=== PATIENT | female | born 1970 | race Caucasian/White ===

== ENCOUNTER 2021-07-24 09:17 | Inpatient (IN) | payer MEDICARE, OTHER, SELFPAY ==
--- NOTE | ~2021-07-24 | US_ITS ---
EXAMINATION: US ABDOMEN LIMITED CLINICAL INFORMATION: Right upper quadrant and epigastric pain with nausea.. COMPARISON: CT abdomen and pelvis with contrast 11/18/2011. TECHNIQUE: Real-time imaging of the right upper quadrant abdominal viscera. FINDINGS: PANCREAS: The visualized pancreas is normal in size and contour and echogenicity. There is no pancreatic ductal distention or retroperitoneal effusion. Portion pancreatic tail obscured by bowel gas and not completely imaged. LIVER: The liver is normal in size and contour and within normal echogenicity. There is no focal hepatic parenchymal lesion or intrahepatic biliary ductal dilatation. GALLBLADDER: There is positive sonographic Madsen's sign with tenderness with transducer compression. The gallbladder is distended to 3.5 cm in diameter. There are numerous dependent calculi in the gallbladder. Gallbladder wall is within limits of normal thickness. No visible subserosal edema . COMMON BILE DUCT: Normal in caliber measuring 0.4 cm in diameter. RIGHT KIDNEY: Normal. No hydronephrosis. No renal calculi or focal parenchymal lesions. The kidney measures 10.9 cm in maximum dimension. FREE FLUID: None. US/US abdomen limited IMPRESSION: 1. Numerous gallstones. Positive sonographic Madsen's sign. Gallbladder wall within limits of normal at this time. 2. No intrahepatic or extrahepatic ductal dilatation.
[2021-07-24 09:44] VITALS: BP 149/74; PULSE 80; RESP 18; TEMP 36.9; O2SAT 99; BMI 32.5
--- NOTE | 2021-07-24 10:24 | ECG_ITS ---
Test Reason : ABDOMINAL PAIN Blood Pressure : / mmHG Vent. Rate : 076 BPM Atrial Rate : 076 BPM P-R Int : 166 ms QRS Dur : 094 ms QT Int : 432 ms P-R-T Axes : 046 058 044 degrees QTc Int : 486 ms Normal sinus rhythm Prolonged QT Abnormal ECG No previous ECGs available Referred By: Rosanna King Electronically Signed By:
--- NOTE | 2021-07-24 10:55 | PC.NURSE ---
pt off to ultrasound via stretcher.
[2021-07-24 11:03] LABS: Appearance Urine CLEAR; Color Urine YELLOW; Glucose Urine UA NEG (NEG); Leukocyte Esterase Urine NEG (NEG); Nitrite Urine NEG (NEG); PH 6.5 (5.0-8.0); UACC Culture Trigger NO; Urine Blood TRACE (NEG); Urine Ketones NEG (NEG); Urine Protein NEG (NEG-TRACE)
[2021-07-24 11:09] LABS: WBC Urine 0-2 /HPF (0-4)
[2021-07-24 11:10] LABS: Mucus Urine 3+ /LPF; Squamous Epithelial Cell Urine 2+ /LPF
[2021-07-24 12:03] LABS: MANUAL DIFF FLAG NO
[2021-07-24 12:05] LABS: Basophils Absolute Auto 0.1 X10*3/uL (0.0-0.2); Basophils Percent Auto 0.4 % (0-2); Eosinophils Percent Auto 0.2 % (0-4); Hematocrit 39.2 % (37.0-47.0); Hemoglobin 12.6 g/dl (12.0-16.0); Imm Gran Abs Auto 0.07 X10*3/uL (0.00-0.03); Imm Gran Pct Auto 0.6 % (0.0-0.4); Lymphocytes Absolute Auto 1.3 X10*3/uL (1.2-4.9); Lymphocytes Percent Auto 11.3 % (20-40); Mean Corpuscular HGB Conc 32.1 g/dl (31.0-35.0); Mean Platelet Volume 9.4 fL (9.4-12.3); Monocytes Absolute Auto 0.4 X10*3/uL (0.1-1.2); Monocytes Percent Auto 3.2 % (2-11); Neutrophils Absolute Auto 9.44 x10*3/uL (2.0-8.3); Neutrophils Percent Auto 84.3 % (45-73); Platelet Count 408 X10*3/uL (160-400); Red Blood Count 4.84 X10*6/uL (4.20-5.50); Red Cell Distribution Width 13.2 % (11.0-16.0); White Blood Count 11.2 X10*3/uL (4.8-10.8)
[2021-07-24] MEDS: Ketorolac Tromethamine 15 MG/ML VIAL IVPUSH (12:07)
[2021-07-24] MEDS: ondansetron HCL 4 MG/2 ML VIAL IVPUSH ×2 (12:07→22:33)
[2021-07-24] MEDS: Magnesium Hydrox/Alum Hydrox 30 ML ORAL.SUSP PO (12:11)
[2021-07-24] MEDS: Lidocaine HCl Viscous 2 % 15 ML SOLUTION MUCOUS MEM (12:11)
[2021-07-24] MEDS: Famotidine/PF 20 MG/2 ML VIAL IVPUSH (12:11)
[2021-07-24] MEDS: 0.9 % Sodium Chloride 1,000 ML 999 ML IVCONT (12:11)
--- NOTE | 2021-07-24 12:28 | ED_ITS ---
HPI - Abdominal Pain General Chief Complaint: Abdominal Pain Stated Complaint: upper abd pain Time Seen by Provider: 07/24/21 10:19 Source: patient Mode of arrival: ambulatory History of Present Illness HPI narrative: 50-year-old female with a past medical history of IBS, migraines, presenting to the ED complaining of right upper quadrant abdominal pain, & nausea since 5:00 a.m. Admits pain woke her up from sleep. Denies fever, chills, diarrhea/constipation, dysuria/hematuria, CP/SOB MD elicited complaint: abdominal pain Related Data Home Medications Medication Instructions Recorded Confirmed atorvastatin 10 mg tablet 10 mg PO BEDTIME 07/24/21 07/24/21 black cohosh 200 mg capsule 200 mg PO DAILY 07/24/21 07/24/21 cetirizine 10 mg tablet (Zyrtec) 10 mg PO DAILY 07/24/21 07/24/21 cyclobenzaprine 5 mg tablet 1 tab PO BEDTIME PRN 07/24/21 07/24/21 eluxadoline 75 mg tablet (Viberzi) 1 tab PO BEDTIME 07/24/21 07/24/21 escitalopram oxalate 20 mg tablet 1 tab PO DAILY 07/24/21 07/24/21 fremanezumab-vfrm 225 mg/1.5 mL 140 mg SUBCUT Q28D 07/24/21 07/24/21 subcutaneous auto-injector (Ajovy) midodrine 2.5 mg tablet 1 tab PO BID 07/24/21 07/24/21 omeprazole 20 mg capsule,delayed 20 mg PO DAILY 07/24/21 07/24/21 release oxybutynin chloride 10 mg 1 tab PO DAILY 07/24/21 07/24/21 tablet,extended release 24 hr rimegepant 75 mg disintegrating 1 tab PO DAILY PRN 07/24/21 07/24/21 tablet (Nurtec ODT) sumatriptan succinate 100 mg tablet 100 mg PO DAILY PRN 07/24/21 07/24/21 Allergies Allergy/AdvReac Type Severity Reaction Status Date / Time Sulfa (Sulfonamide Allergy Unknown RASH Unverified 06/07/20 18:09 Antibiotics) [SULFA (SULFONAMIDE ANTIBIOTICS)] codeine [CODEINE] AdvReac Unknown NAUSEA & Unverified 06/07/20 18:09 VOMITING Review of Systems Review of Systems Constitutional:No Fever, No Chills, No Fatigue, No Malaise ENT/Mouth: No Nasal Congestion, No Sinus Pain, No Hoarseness, No sore throat, No Rhinorrhea, No Swallowing Difficulty Eyes: No Eye Pain, No Swelling, No Redness Cardiovascular: No Chest Pain, No SOB, No Edema, No Palpitations Respiratory: No Cough, No Dyspnea Gastrointestinal: + Nausea, No Vomiting, No Diarrhea, No Constipation, + Abdominal pain Genitourinary: No irregular bleeding, No Dysuria, No Urinary Frequency, No Hematuria,No Urgency, No Flank Pain Musculoskeletal: No joint pain, No Myalgias, No Joint Swelling Skin: No Skin Lesions, No rash Neuro: No Weakness, No Dizziness, No Headache Yes all other systems are reviewed and are negative Physical Exam Vital Signs: Vital Signs: Last Vital Signs Temp 98.3 F 07/24/21 14:28 Pulse 86 07/24/21 14:28 Resp 18 07/24/21 14:28 BP 120/57 L 07/24/21 14:28 Pulse Ox 100 07/24/21 14:28 Body Mass Index 32.5 Const: General: cooperative, healthy appearing and no acute distress Orientation/consciousness: patient oriented x3 Limitations: no limitations HENMT: Head: Yes normal to inspection Ears: hearing grossly normal bilaterally General nose exam: Normal external nose present Face and sinus: Yes normal facial exam Eyes: General: appearance normal, both eyes and all related structures EOM: EOMs intact bilaterally Neck: Neck: Yes normal visual inspection and Yes no meningeal signs Resp: Effort & Inspection: normal respiratory effort Auscultation: clear to auscultation bilaterally, no rales and no wheezes Cardio: Rate: regular rate Heart sounds: S1 normal heart sound present and S2 normal heart sound present GI: Inspection: Yes normal to inspection Palpation (GI): Soft to palpation, Tenderness to palpation present (GI) in the epigastrum and in the RUQ, no guarding and not rigid : General: Yes no CVA tenderness Back/Spine/Pelvis: Back: no CVA tenderness Skin: Rashes: no rashes Wounds: no wounds Neuro: General: patient oriented x3 and no meningeal signs Gait exam (Neuro): Normal gait present Extrem: General: Yes normal to inspection Course Course Course Narrative: 1230--US abdomen limited IMPRESSION: 1. Numerous gallstones. Positive sonographic Madsen's sign. Gallbladder wall within limits of normal at this time. 2. No intrahepatic or extrahepatic ductal dilatation. -mild leukocytosis of 11.2, labs otherwise unremarkable. Will consult surgery -1230--Dr. Negron consulted, is currently going into surgery will admit when finished MDM - Abdominal Pain MDM Narrative Medical decision making narrative: 50-year-old female with a past medical history of IBS, migraines, presenting to the ED complaining of right upper quadrant abdominal pain, & nausea since 5:00 a.m. on exam vital signs stable, appears in pain, abdomen soft with RUQ/epigastric TTP, no rebound or guarding, no CVAT. Concern for cholecystitis/cholelithiasis vs pancreatitis. Lower concern for renal stone/pyelo or UTI. Unlikely diverticulitis/appendicitis Plan: Labs, UA, abdomen ultrasound, IVF, symptomatic treatment, re-evaluation Medical Records Attestation: I reviewed the patient's medical records. Lab Data Attestation: I reviewed the patient's lab results. Result diagrams: 07/24/21 11:58 07/24/21 11:57 Labs: Lab Results 07/24/21 07/24/21 07/24/21 Range/Units 10:54 11:57 11:58 WBC 11.2 H (4.8-10.8) X10*3/uL RBC 4.84 (4.20-5.50) X10*6/uL Hgb 12.6 (12.0-16.0) g/dl Hct 39.2 (37.0-47.0) % MCV 81.0 (80.0-98.0) fL MCH 26.0 L (27.0-33.0) pg MCHC 32.1 (31.0-35.0) g/dl RDW 13.2 (11.0-16.0) % Plt Count 408 H (160-400) X10*3/uL MPV 9.4 (9.4-12.3) fL Immature Gran % (Auto) 0.6 H (0.0-0.4) % Neut % (Auto) 84.3 H (45-73) % Lymph % (Auto) 11.3 L (20-40) % [place] % (Auto) 3.2 (2-11) % Eos % (Auto) 0.2 (0-4) % Baso % (Auto) 0.4 (0-2) % Lymph # (Auto) 1.3 (1.2-4.9) X10*3/uL [place] # (Auto) 0.4 (0.1-1.2) X10*3/uL Eos # (Auto) 0.0 (0.0-0.4) X10*3/uL Baso # (Auto) 0.1 (0.0-0.2) X10*3/uL Abs Immat Gran (auto) 0.07 H (0.00-0.03) X10*3/uL Absolute Neuts (auto) 9.44 H (2.0-8.3) x10*3/uL Absolute Nucleated RBC 0.000 (0.0-0.012) X10*3/uL Nucleated RBC % (auto) 0.0 (0.0-0.2) /100WBC Sodium 140 (135-145) mmol/L Potassium 4.9 (3.3-5.1) mmol/L Chloride 103 (96-108) mmol/L Carbon Dioxide 24 (22-29) mmol/L Anion Gap 18 (12-20) BUN 9 (9-16) mg/dL Creatinine 0.78 (0.5-1.4) mg/dL Estim Creat Clear Calc 92.7 Estimated GFR > 60 Random Glucose 113 (60-115) mg/dL Calcium 10.0 (8.4-10.2) mg/dL Magnesium 2.1 (1.6-2.6) mg/dL Total Bilirubin 0.2 (0.0-1.0) mg/dL Direct Bilirubin < 0.2 (0.0-0.5) mg/dL AST 23 (5-31) U/L ALT 21 (0-31) U/L Alkaline Phosphatase 132 H (39-117) U/L Total Protein 7.9 (6.5-8.0) g/dL Albumin 4.2 (3.5-5.0) g/dL Lipase 20 (8-78) U/L Urine Color YELLOW Urine Appearance CLEAR Urine pH 6.5 (5.0-8.0) Ur Specific [place] 1.020 (1.005-1.025) Urine Protein NEG (NEG-TRACE) MG/DL Urine Glucose (UA) NEG (NEG) MG/DL Urine Ketones NEG (NEG) MG/DL Urine Blood TRACE (NEG) Urine Nitrite NEG (NEG) Ur Leukocyte Esterase NEG (NEG) Urine RBC 1-4 (0) /HPF Urine WBC 0-2 (0-4) /HPF Ur Squamous Epith Cells 2+ /LPF Urine Bacteria NONE /LPF Urine Mucus 3+ /LPF COVID-19 (ANA PAULA) (Negative) COVID-19 Clin Com 07/24/21 Range/Units 14:34 WBC (4.8-10.8) X10*3/uL RBC (4.20-5.50) X10*6/uL Hgb (12.0-16.0) g/dl Hct (37.0-47.0) % MCV (80.0-98.0) fL MCH (27.0-33.0) pg MCHC (31.0-35.0) g/dl RDW (11.0-16.0) % Plt Count (160-400) X10*3/uL MPV (9.4-12.3) fL Immature Gran % (Auto) (0.0-0.4) % Neut % (Auto) (45-73) % Lymph % (Auto) (20-40) % [place] % (Auto) (2-11) % Eos % (Auto) (0-4) % Baso % (Auto) (0-2) % Lymph # (Auto) (1.2-4.9) X10*3/uL [place] # (Auto) (0.1-1.2) X10*3/uL Eos # (Auto) (0.0-0.4) X10*3/uL Baso # (Auto) (0.0-0.2) X10*3/uL Abs Immat Gran (auto) (0.00-0.03) X10*3/uL Absolute Neuts (auto) (2.0-8.3) x10*3/uL Absolute Nucleated RBC (0.0-0.012) X10*3/uL Nucleated RBC % (auto) (0.0-0.2) /100WBC Sodium (135-145) mmol/L Potassium (3.3-5.1) mmol/L Chloride (96-108) mmol/L Carbon Dioxide (22-29) mmol/L Anion Gap (12-20) BUN (9-16) mg/dL Creatinine (0.5-1.4) mg/dL Estim Creat Clear Calc Estimated GFR Random Glucose (60-115) mg/dL Calcium (8.4-10.2) mg/dL Magnesium (1.6-2.6) mg/dL Total Bilirubin (0.0-1.0) mg/dL Direct Bilirubin (0.0-0.5) mg/dL AST (5-31) U/L ALT (0-31) U/L Alkaline Phosphatase (39-117) U/L Total Protein (6.5-8.0) g/dL Albumin (3.5-5.0) g/dL Lipase (8-78) U/L Urine Color Urine Appearance Urine pH (5.0-8.0) Ur Specific Landers (1.005-1.025) Urine Protein (NEG-TRACE) MG/DL Urine Glucose (UA) (NEG) MG/DL Urine Ketones (NEG) MG/DL Urine Blood (NEG) Urine Nitrite (NEG) Ur Leukocyte Esterase (NEG) Urine RBC (0) /HPF Urine WBC (0-4) /HPF Ur Squamous Epith Cells /LPF Urine Bacteria /LPF Urine Mucus /LPF COVID-19 (ANA PAULA) Negative (Negative) COVID-19 Clin Com See Note ECG Data Attestation: I personally reviewed and interpreted this ECG as follows: ECG interpretation date: 07/24/21 ECG interpretation time: 13:05 Interpretation: EKG normal sinus rhythm with a rate of 68. Irritable 174. QTC 455. Inverted T-waves in V2 /V3 no STEMI Discharge Plan Discharge Clinical Impression: Acute cholecystitis Patient Disposition: Admitted As Inpatient [facility] Past Medical History Attestation statement: The following information was validated with the patient. Medical History IBS (irritable bowel syndrome) Migraines Social History Social History Alcohol intake: never Patient Tobacco Use Status: Never used Tobacco Use of substances other than those prescribed or required for medical reasons: No Advance Directives: No Advance Directives Information Provided: No Patient : No
[2021-07-24 12:30] LABS: Alanine Aminotransferase 21 U/L (0-31); Albumin Level 4.2 g/dL (3.5-5.0); Alkaline Phosphatase 132 U/L (39-117); Anion Gap 18 (12-20); Aspartate Amino Transferase 23 U/L (5-31); Bilirubin Direct < 0.2 mg/dL (0.0-0.5); Bilirubin Total 0.2 mg/dL (0.0-1.0); Blood Urea Nitrogen 9 mg/dL (9-16); Carbon Dioxide 24 mmol/L (22-29); Chloride 103 mmol/L (96-108); Creatinine Clr Calc Pharmacy 92.7; Estimated Glomerular Filt Rate > 60; Glucose Random 113 mg/dL (60-115); Lipase 20 U/L (8-78); Magnesium 2.1 mg/dL (1.6-2.6); Potassium 4.9 mmol/L (3.3-5.1); Sodium 140 mmol/L (135-145); Total Protein 7.9 g/dL (6.5-8.0)
--- NOTE | 2021-07-24 13:25 | PM.HPGS ---
History of Present Illness History of Present Illness Date of Service: 07/24/21 Chief complaint: upper abd pain Narrative: Esperanza Zazueta is a 50 year old female presenting with abdominal pain in the right upper quad began at 05:00 this morning. She denies a previous episode of similar pain and reports the pain being sharp and stabbing, 10/10 of severity. She denies nausea, vomiting, fever, chills. She does have a history of irritable bowel syndrome and reflux due to a hiatal hernia. She denies a previous history of abdominal surgery. She presented to the emergency department this morning and was found to be tender in the right upper quadrant with a positive Madsen sign. Ultrasound of the abdomen revealed multiple gallstones within the gallbladder with a tender gallbladder (sonographic Madsen sign). Admitting laboratories revealed elevated WBC of 11,000 but normal liver function tests. She is admitted to the surgical service for further management of her acute cholecystitis. Review of Systems Constitutional: Constitutional: Denies chills, Denies fever(s), Denies headache(s) and Denies poor appetite ENT: Denies dizziness and Denies headache(s) Cardiovascular: Cardiovascular: Denies chest pain, Denies rapid heart rate, Denies palpitations and Denies slow heart rate Respiratory: Respiratory: Denies chest congestion, Denies cough, Denies pain on inspiration and Denies wheezing Gastrointestinal: Gastrointestinal: Reports abdominal pain, Denies bloating, Denies change in stool character, Denies constipation, Denies diarrhea, Denies nausea, Denies vomiting and Denies hematemesis Musculoskeletal: Musculoskeletal: Denies back pain, Denies arthralgias, Denies joint swelling and Denies numbness Integumentary/Breasts: Skin/Breast: Denies change in pigmentation, Denies erythema and Denies rash Neurologic: Denies dizziness, Denies headache(s) and Denies numbness Psychiatric: Psychiatric: Denies anxiety and Denies depression Endocrine: Endocrine: Denies palpitations Hematologic/Lymphatic: Hematologic/Lymphatic: Denies easy bleeding, Denies easy bruising and Denies lymphadenopathy Allergic/Immunologic: Allergic/Immunologic: Denies wheezing PMFSH Past Medical History Medical History IBS (irritable bowel syndrome) Migraines Social History Social History Alcohol intake: never Patient Tobacco Use Status: Never used Tobacco Use of substances other than those prescribed or required for medical reasons: No Advance Directives: No Advance Directives Information Provided: No Patient : No Meds Allergies Allergy/AdvReac Type Severity Reaction Status Date / Time Sulfa (Sulfonamide Allergy Unknown RASH Unverified 06/07/20 18:09 Antibiotics) [SULFA (SULFONAMIDE ANTIBIOTICS)] codeine [CODEINE] AdvReac Unknown NAUSEA & Unverified 06/07/20 18:09 VOMITING Active Medications: Current Medications Piperacillin Sod/Tazobactam (Sod 3.375 gm/ Sodium Chloride) 50 mls @ 100 mls/hr IV ONCE ONE Stop: 07/24/21 13:26 Pharmacy Consult (Consult Rx Perform Med Rec) 1 each MISCELLANE ONCE PRN PRN Reason: Consult order Home Medications Medication Instructions Recorded Confirmed Last Taken Type atorvastatin 10 mg tablet 1 tab PO DAILY 07/24/21 Unknown History cyclobenzaprine 5 mg tablet 1 tab PO BEDTIME PRN 07/24/21 Unknown History eluxadoline 75 mg tablet (Viberzi) 1 tab PO BEDTIME 07/24/21 Unknown History escitalopram oxalate 20 mg tablet 1 tab PO DAILY 07/24/21 Unknown History fremanezumab-vfrm 225 mg/1.5 mL mg SUBCUT 07/24/21 Unknown History subcutaneous auto-injector (Ajovy) midodrine 2.5 mg tablet 1 tab PO BID 07/24/21 Unknown History oxybutynin chloride 10 mg 1 tab PO DAILY 07/24/21 Unknown History tablet,extended release 24 hr Physical Exam Vital Signs: Vital Signs: Last Vital Signs Temp 98.4 F 07/24/21 09:44 Pulse 80 07/24/21 09:44 Resp 18 07/24/21 09:44 BP 149/74 H 07/24/21 09:44 Pulse Ox 99 07/24/21 09:44 Body Mass Index 32.5 Const: General: cooperative, no acute distress and well developed Nutritional Appearance: well nourished Orientation/consciousness: patient oriented x3 Limitations: no limitations HENMT: Head: Yes normocephalic and Yes atraumatic Ears: hearing grossly normal bilaterally Resp: Effort & Inspection: normal respiratory effort, no cough and no respiratory distress GI: Inspection: Yes normal to inspection Palpation (GI): Soft to palpation and Tenderness to palpation present (GI) in the RUQ and Madsen's sign positive Skin: General skin exam: no rashes or lesions noted Neuro: General: patient oriented x3 Extrem: General: Yes no clubbing, cyanosis or edema Results Results Labs: Short CBC 07/24/21 Range/Units 11:58 WBC 11.2 H (4.8-10.8) X10*3/uL Hgb 12.6 (12.0-16.0) g/dl Hct 39.2 (37.0-47.0) % Plt Count 408 H (160-400) X10*3/uL BMP 07/24/21 11:57 Sodium 140 Potassium 4.9 Chloride 103 Carbon Dioxide 24 BUN 9 Creatinine 0.78 Calcium 10.0 Liver Function 07/24/21 Range/Units 11:57 Total Bilirubin 0.2 (0.0-1.0) mg/dL Direct Bilirubin < 0.2 (0.0-0.5) mg/dL AST 23 (5-31) U/L ALT 21 (0-31) U/L Alkaline Phosphatase 132 H (39-117) U/L Albumin 4.2 (3.5-5.0) g/dL Urine 07/24/21 Range/Units 10:54 Urine Color YELLOW Urine Appearance CLEAR Urine pH 6.5 (5.0-8.0) Ur Specific [place] 1.020 (1.005-1.025) Urine Protein NEG (NEG-TRACE) MG/DL Urine Glucose (UA) NEG (NEG) MG/DL Assessment and Plan (1) Acute cholecystitis: Status: Acute 50-year-old female patient presenting to the emergency department with complaints of abdominal pain in the right upper quadrant which began this morning. On examination the patient is tender in the right upper quadrant with a positive Madsen sign. Laboratories revealed an elevated WBC and ultrasound the abdomen confirmed gallstones within the gallbladder with a tender gallbladder. Findings are suggestive of acute cholecystitis due to cholelithiasis. I recommended a laparoscopic or possible open cholecystectomy and after discussion of the procedure, risks, and alternatives, she consents to the surgery. She will be added onto the operative schedule for today. Quality Stroke Does the patient have a stroke diagnosis?: No VTE Prior VTE?: No VTE Risk Level:: Surgical - moderate VTE Device Contraindication: N/A - Device Ordered VTE Drug Contraindication: Treatment Not Indicated Procedures Date of Service Date of Service: 07/24/21
--- NOTE | 2021-07-24 13:34 | PHA.MEDREC ---
Pharmacy Consult ? Medication Reconciliation Pharmacy has completed the medication reconciliation. Patient's last ajovy dose was 07/22/2021. Thanks Nadege Heath
[2021-07-24] MEDS: Piperacillin Sodium/Tazobactam 3.375 GM in 0.9 % Sodium Chloride 50 ML IV (14:04)
[2021-07-24 14:28] VITALS: BP 120/57; PULSE 86; RESP 18; TEMP 36.8; O2SAT 100
--- NOTE | 2021-07-24 14:28 | PC.NURSE ---
rn to rn report given to yoana pt aware of plan of care for surgery today or tomorrow. pt seen earlier by dr. martini, pt/mother aware of plan of care.
[2021-07-24 15:09] LABS: COVID-19 Test Negative (Negative); IDNOW Serial# 08D9AD1C
[2021-07-24] MEDS: HYDROmorphone HCl 0.5 MG/0.5 ML SYRINGE IVPUSH ×3 (16:02→21:59)
[2021-07-24] MEDS: Lactated Ringers 1,000 ML 100 ML IVCONT (18:24)
[2021-07-24 19:13] VITALS: BP 134/71; PULSE 104; RESP 14; TEMP 38.7; O2SAT 100
[2021-07-24 21:23] VITALS: BP 139/68; PULSE 99; RESP 18; TEMP 36.3; O2SAT 98
[2021-07-24] MEDS: Atorvastatin Calcium 10 MG TABLET PO (21:59)
[2021-07-24] MEDS: metroNIDAZOLE/NS 500 MG/100 ML PIGGYBACK 100 MG IV (22:13)
[2021-07-24 23:53] VITALS: BP 120/59; PULSE 96; RESP 16; TEMP 37.6; O2SAT 93
[2021-07-25] VITALS (14 sets, daily range): BP systolic 98–129; BP diastolic 56–69; PULSE 75–98; RESP 14–20; TEMP 36–37.6; O2SAT 93–98
[2021-07-25] MEDS: HYDROmorphone HCl 0.5 MG/0.5 ML SYRINGE IVPUSH ×4 (00:05→19:19)
--- NOTE | 2021-07-25 02:56 | PC.NURSE ---
metronidazole given on the floor late because it had not been given in the ED
--- NOTE | 2021-07-25 07:48 | MHC.SHP ---
Pre-Procedural Eval Section A Date of Service: 07/25/21 The patient is an INPATIENT: Yes Changes since office visit: Yes Patient answered all questions; No Cold of Flu in the past 2 weeks, No New Medical Problems and No Changes in Medication The History & Physical has been completed within 30 days and I have reviewed it.: Yes Section B Chief Complaint: acute cholecystitis,cholelithiasis Allergies: Allergies Allergy/AdvReac Type Severity Reaction Status Date / Time Sulfa (Sulfonamide Allergy Unknown RASH Unverified 06/07/20 18:09 Antibiotics) [SULFA (SULFONAMIDE ANTIBIOTICS)] Penicillins [PCN] Allergy Unknown Verified 07/24/21 23:22 amitriptyline AdvReac Unknown passing out Verified 07/24/21 23:29 codeine [CODEINE] AdvReac Unknown NAUSEA & Unverified 06/07/20 18:09 VOMITING Plan Diagnosis/Plan: Unchanged I have reviewed the history and physical and performed a pertinent physical examination on my patient. No changes have occurred unless specified.
[2021-07-25] MEDS: Omeprazole 20 MG CAPSULE.DR PO ×3 (07:57→20:47)
[2021-07-25] MEDS: Escitalopram Oxalate 20 MG TABLET PO (07:58)
[2021-07-25] MEDS: Lactated Ringers 1,000 ML 100 ML IVCONT ×2 (07:58→22:00)
[2021-07-25] MEDS: Midodrine HCl 2.5 MG TABLET PO ×2 (07:58→20:47)
[2021-07-25] MEDS: ondansetron HCL 4 MG/2 ML VIAL IVPUSH (08:00)
[2021-07-25] MEDS: SUMAtriptan succinate 100 MG TABLET PO (08:11)
--- NOTE | 2021-07-25 09:33 | HO.ANESPROP2 ---
[facility] Active Problems Active Problems: All Active Problems (Updated 07/24/21 @ 13:23 by BRANDO Greenberg) Acute cholecystitis (Acute) Past Medical History Medical History IBS (irritable bowel syndrome) Migraines Surgical History History of Problems with Anesthesia: No Social History Social History Household Members: Spouse Housing: House Do you presently have visiting nurse or other home services: No Alcohol intake: never Patient Tobacco Use Status: Never used Tobacco Use of substances other than those prescribed or required for medical reasons: No Currently Displaying Signs/Symptoms of Drug Intoxication Withdrawal: No Have you been hit, kicked, punched, or otherwise hurt by someone within the past year? If so, by whom?: No Do you feel safe in your current relationship?: No Is there a partner from a previous relationship who is making you feel unsafe now?: No Are you made to feel afraid or neglected: No Are you DNR?: No Advance Directives: No Advance Directives Information Provided: No Do you have thoughts of harming others: None Do you have a plan to hurt others: No Plan Recently lost weight without trying: No Nutrition Risks: No Nutritional Risk Patient : No : No Poor oral hygiene: No Meds Allergies Allergy/AdvReac Type Severity Reaction Status Date / Time Sulfa (Sulfonamide Allergy Unknown RASH Verified 07/25/21 08:03 Antibiotics) [SULFA (SULFONAMIDE ANTIBIOTICS)] Penicillins [PCN] Allergy Unknown Verified 07/25/21 08:03 amitriptyline AdvReac Unknown passing out Verified 07/25/21 08:03 codeine [CODEINE] AdvReac Unknown NAUSEA & Verified 07/25/21 08:03 VOMITING Active Medications: Current Medications Atorvastatin Calcium (Atorvastatin Calcium 10 Mg Tablet) 10 mg PO BEDTIME JDUD Last Admin: 07/24/21 21:59 Dose: 10 mg Documented by: Cyclobenzaprine HCl (Cyclobenzaprine Hcl 5 Mg Tablet) 5 mg PO BEDTIME PRN PRN Reason: Spasms Escitalopram Oxalate (Escitalopram Oxalate 20 Mg Tablet) 20 mg PO DAILY JUDD Last Admin: 07/25/21 07:58 Dose: 20 mg Documented by: Hydromorphone HCl (Hydromorphone Hcl 0.5 Mg/0.5 Ml Syringe) 0.5 mg IVPUSH Q2H PRN; Protocol PRN Reason: abdominal pain Last Admin: 07/25/21 06:46 Dose: 0.5 mg Documented by: Lactated Ringer's (Lr) 1,000 mls @ 100 mls/hr IVCONT .Q10H [facility] Last Admin: 07/25/21 07:58 Dose: 100 mls/hr Documented by: Midodrine (Midodrine Hcl 2.5 Mg Tablet) 2.5 mg PO BID [facility] Last Admin: 07/25/21 07:58 Dose: 2.5 mg Documented by: Non-Formulary Medication (Eluxadoline [Viberzi]) 1 tab PO BEDTIME [facility] Non-Formulary Medication (Rimegepant [Nurtec Odt]) 1 tab PO DAILY PRN PRN Reason: Headache Omeprazole (Omeprazole 20 Mg Capsule.Dr) 20 mg PO DAILY [facility] Last Admin: 07/25/21 07:57 Dose: 20 mg Documented by: Ondansetron HCl (Ondansetron Hcl 4 Mg/2 Ml Vial) 4 mg IVPUSH QID PRN PRN Reason: Nausea Last Admin: 07/25/21 08:00 Dose: 4 mg Documented by: Oxybutynin Chloride (Oxybutynin Chloride Er 5 Mg Tab.Er.24) 10 mg PO DAILY [facility] Last Admin: 07/25/21 07:57 Dose: 10 mg Documented by: Pharmacy Consult (Consult Rx Perform Med Rec) 1 each MISCELLANE ONCE PRN PRN Reason: Consult order Sumatriptan Succinate (Sumatriptan Succinate 100 Mg Tablet) 100 mg PO DAILY PRN PRN Reason: Headache Last Admin: 07/25/21 08:11 Dose: 100 mg Documented by: Home Medications Medication Instructions Recorded Confirmed Last Taken Type atorvastatin 10 mg tablet 10 mg PO BEDTIME 07/24/21 07/24/21 07/23/21 History black cohosh 200 mg capsule 200 mg PO DAILY 07/24/21 07/24/21 07/24/21 History cetirizine 10 mg tablet (Zyrtec) 10 mg PO DAILY 07/24/21 07/24/21 07/24/21 History cyclobenzaprine 5 mg tablet 1 tab PO BEDTIME PRN 07/24/21 07/24/2121 History eluxadoline 75 mg tablet (Viberzi) 1 tab PO BEDTIME 07/24/21 07/24/21 07/23/21 History escitalopram oxalate 20 mg tablet 1 tab PO DAILY 07/24/21 07/24/21 07/24/21 History fremanezumab-vfrm 225 mg/1.5 mL 140 mg SUBCUT Q28D 07/24/21 07/24/21 07/22/21 History subcutaneous auto-injector (Ajovy) midodrine 2.5 mg tablet 1 tab PO BID 07/24/21 07/24/21 07/24/21 History omeprazole 20 mg capsule,delayed 20 mg PO DAILY 07/24/21 07/24/21 07/24/21 History release oxybutynin chloride 10 mg 1 tab PO DAILY 07/24/21 07/24/21 07/24/21 History tablet,extended release 24 hr rimegepant 75 mg disintegrating 1 tab PO DAILY PRN 07/24/21 07/24/21 Unknown History tablet (Nurtec ODT) sumatriptan succinate 100 mg tablet 100 mg PO DAILY PRN 07/24/21 07/24/21 Unknown History Exam Exam Date and Time: July 25, 2021 0933 Height,Weight and Vital Signs: Height 5 ft 4 in Weight 86.183 kg Last Vital Signs Temp 99.7 F 07/25/21 08:00 Pulse 90 07/25/21 08:00 Resp 18 07/25/21 08:00 BP 114/64 07/25/21 08:00 Pulse Ox 98 07/25/21 08:00 Pertinent Lab Results Pertinent Lab Results: Laboratory Tests 07/24/21 07/24/21 07/24/21 10:54 11:57 11:58 WBC 11.2 H RBC 4.84 Hgb 12.6 Hct 39.2 MCV 81.0 MCH 26.0 L MCHC 32.1 RDW 13.2 Plt Count 408 H MPV 9.4 Immature Gran % (Auto) 0.6 H Neut % (Auto) 84.3 H Lymph % (Auto) 11.3 L Kern % (Auto) 3.2 Eos % (Auto) 0.2 Baso % (Auto) 0.4 Lymph # (Auto) 1.3 Kern # (Auto) 0.4 Eos # (Auto) 0.0 Baso # (Auto) 0.1 Abs Immat Gran (auto) 0.07 H Absolute Neuts (auto) 9.44 H Absolute Nucleated RBC 0.000 Nucleated RBC % (auto) 0.0 Sodium 140 Potassium 4.9 Chloride 103 Carbon Dioxide 24 Anion Gap 18 BUN 9 Creatinine 0.78 Estim Creat Clear Calc 92.7 Estimated GFR > 60 Random Glucose 113 Calcium 10.0 Magnesium 2.1 Total Bilirubin 0.2 Direct Bilirubin < 0.2 AST 23 ALT 21 Alkaline Phosphatase 132 H Total Protein 7.9 Albumin 4.2 Lipase 20 Urine Color YELLOW Urine Appearance CLEAR Urine pH 6.5 Ur Specific [place] 1.020 Urine Protein NEG Urine Glucose (UA) NEG Urine Ketones NEG Urine Blood TRACE Urine Nitrite NEG Ur Leukocyte Esterase NEG Urine RBC 1-4 Urine WBC 0-2 Ur Squamous Epith Cells 2+ Urine Bacteria NONE Urine Mucus 3+ COVID-19 ([facility]UL[facility]) COVID-19 Clin Com 07/24/21 14:34 WBC RBC Hgb Hct MCV MCH MCHC RDW Plt Count MPV Immature Gran % (Auto) Neut % (Auto) Lymph % (Auto) Kern % (Auto) Eos % (Auto) Baso % (Auto) Lymph # (Auto) Kern # (Auto) Eos # (Auto) Baso # (Auto) Abs Immat Gran (auto) Absolute Neuts (auto) Absolute Nucleated RBC Nucleated RBC % (auto) Sodium Potassium Chloride Carbon Dioxide Anion Gap BUN Creatinine Estim Creat Clear Calc Estimated GFR Random Glucose Calcium Magnesium Total Bilirubin Direct Bilirubin AST ALT Alkaline Phosphatase Total Protein Albumin Lipase Urine Color Urine Appearance Urine pH Ur Specific [place] Urine Protein Urine Glucose (UA) Urine Ketones Urine Blood Urine Nitrite Ur Leukocyte Esterase Urine RBC Urine WBC Ur Squamous Epith Cells Urine Bacteria Urine Mucus COVID-19 ([facility]UL[facility]) Negative COVID-19 Clin Com See Note Airway Mallampati Class: II TM Dist: >3cm Neck ROM: Full Loose/Missing/Broken Teeth: No Heart: RRR Lungs: CTA Assessment and Plan Assessment Anesthesia Assessment: Anesthesia Plan Discussed and Chart Reviewed Final Anesthetic Review History of Problems with Anesthesia: No NPO: Yes ASA Class: II Final Preanesthetic Review: Meds/Allgs Chart Reviewed, Consent Obtained/Reviewed and Anes Risks/Benef Reviewed Patient Risk: Low Procedure Risk: Intermediate Anesthetic Plan Anesthetic Plan: GA Disposition: Standard PACU
[2021-07-25 09:54] LABS: UPreg QC Valid YES; Urine Pregnancy NEGATIVE (NEGATIVE)
[2021-07-25] MEDS: metroNIDAZOLE/NS 500 MG/100 ML PIGGYBACK 100 MG IV (10:40)
--- NOTE | 2021-07-25 12:35 | MHC.CM.PN ---
PATIENT IS VISITING FROM [place]/ HER MOTHER IS IN ROOM AND SIGNED IMM. SHE VERBALIZES COMPREHENSION OF PATIENT RIGHTS. CASE MANAGEMENT WILL WAIT FOR PATIENT TO ARRIVE ON UNIT TO DETERMINED WHO PCP IS NO DME OR [facility] SERVICES. PLAN IS TO RETURN TO MOTHER'S HOME PRIOR TO HER FLIGHT BACK HOME. IMM 07/25 IN CHART
--- NOTE | 2021-07-25 12:56 | P.OP_ITS ---
Operative Note Operative Note Date of Service: 07/25/21 Narrative: Preoperative diagnosis: Acute cholecystitis. cholelithiasis Postoperative diagnosis: Same Procedure: Laparoscopic cholecystectomy Surgeon: Cristofer Negron MD Pin Ball Machine Mechanic: PACO Smith Anesthesia: General endotracheal Indications for procedure:50-year-old female patient presenting with complaints of abdominal pain in the right upper quadrant associated with nausea and vomiting which began 1 day prior to admission. Patient was brought in to the ED found to have distended gallbladder With multiple gallstones. she presents now for laparoscopic or possible open cholecystectomy. Operative findings: The gallbladder found to be markedly distended and obstructed. Drainage of the bile revealed hydropic fluid suggestive of an obstructive gallbladder. Multiple adhesions were noted to the outer surface of the gallbladder wall. Findings are consistent with acute cholecystitis due to cholelithiasis. Specimen: gallbladder Estimated blood loss:50 mls Complications: none Procedure details: Patient was brought to the OR and placed in a supine position. After administering general anesthesia the patient's abdomen was prepped with ChloraPrep and draped in a sterile fashion. Local anesthesia consisting of 0.5% Sensorcaine without epinephrine was infiltrated in a periumbilical region. A 5 mm incision was made above the umbilicus in a transverse fashion. The Veress needle was then inserted while elevating abdominal cavity with towel clips. After positive drop test the abdomen was insufflated to a pressure of 15 mm of mercury. The Veress needle was then removed and a 5 mm trocar inserted. The camera was inserted in the abdomen explored. A 12 mm trocar was then placed in the epigastrium and two 5 mm trocars placed in the right upper quadrant. The patient was placed in reverse Trendelenburg positioning and rotated to the left. The gallbladder was grasped with the fundus and retracted cephalad.. The infundibulum was then grasped and retracted away from the liver bed. The Dolphin dissected was then used to dissect the peritoneum off the infundibulum to reveal the junction with the cystic duct. Cystic artery was noted slightly medial and posterior to the cystic duct. After obtaining a critical view the cystic duct was doubly clipped and divided. The cystic artery was then doubly clipped and divided. The gallbladder was then dissected off the liver bed using electrocautery with an L hook. Hemostasis was assured all times using the electrocautery. When the gallbladder is completely dissected off the liver bed was placed in an Endo- Catch bag and brought out through the epigastric incision. The gallbladder was sent to pathology for further examination. The abdomen was then re-examined. The liver bed was irrigated and suctioned dry. No bleeding or bile leak could be identified. CO2 was then evacuated and all trocars removed. Fascia was closed at the epigastric incision using a [id number] 0 Polysorb suture. Skin was closed in all incisions using a subcuticular 4 0 Polysorb suture. Sterile dressings consisting of Steri-Strips, 2 x 2 gauze, and Tegaderm were then applied. The patient tolerated the procedure well. Sponge instrument and needle counts reported as correct. The patient was transferred to PACU in stable condition.
[2021-07-25] MEDS: Magnesium Hydrox/Alum Hydrox 30 ML ORAL.SUSP PO (15:35)
[2021-07-25] MEDS: Atorvastatin Calcium 10 MG TABLET PO (20:46)
[2021-07-26] MEDS: HYDROmorphone HCl 0.5 MG/0.5 ML SYRINGE IVPUSH ×2 (02:12→10:49)
[2021-07-26 03:56] VITALS: BP 124/63; PULSE 72; RESP 16; TEMP 37; O2SAT 93
[2021-07-26] MEDS: SUMAtriptan succinate 100 MG TABLET PO (05:46)
--- NOTE | 2021-07-26 07:42 | PM.PNGS ---
Subjective Subjective Date of Service: 07/26/21 Interval history: Patient feels much improved, has a migraine headache. Denies nausea or vomiting. Tolerated her regular diet last night without problems. Physical Exam Vital Signs: Vital Signs: Last Vital Signs Temp 98.6 F 07/26/21 03:56 Pulse 72 07/26/21 03:56 Resp 16 07/26/21 03:56 BP 124/63 07/26/21 03:56 Pulse Ox 93 07/26/21 03:56 Body Mass Index 32.5 Const: General: cooperative and comfortable Nutritional Appearance: well nourished Orientation/consciousness: patient oriented x3 Limitations: no limitations Eyes: Sclerae: sclerae normal EOM: EOMs intact bilaterally Resp: Effort & Inspection: normal respiratory effort GI: Inspection: Yes normal to inspection Palpation (GI): Soft to palpation and Tenderness to palpation present (GI) (incional) Skin: General skin exam: no rashes or lesions noted Neuro: General: patient oriented x3 Extrem: General: Yes no clubbing, cyanosis or edema Procedures Date of Service Date of Service: 07/26/21 Progress Note: A&P Assessment and plan (1) Acute cholecystitis: Status: Acute Assessment and Plan: 50-year-old female patient presenting with complaints of abdominal pain right upper quadrant found to have cholelithiasis with cholecystitis. He is status post laparoscopic cholecystectomy postop day 1. She tolerated the procedure well feels improved this morning. Her abdominal pain is improved although she does have some incisional tenderness. She will discharged to home today. She will be staying with her mother in [place] but travel to her actual home in [place] in one week. She is welcome to return to the office prior to this for a wound check. Fall Risk Details Current Medications: Current Medications Al Hydroxide/Mg Hydroxide (Magnesium Hydrox/Alum Hydrox 30 Ml Oral.Susp) 30 ml PO Q4H PRN PRN Reason: Heartburn Last Admin: 07/25/21 15:35 Dose: 30 ml Documented by: Atorvastatin Calcium (Atorvastatin Calcium 10 Mg Tablet) 10 mg PO BEDTIME JUDD Last Admin: 07/25/21 20:46 Dose: 10 mg Documented by: Cyclobenzaprine HCl (Cyclobenzaprine Hcl 5 Mg Tablet) 5 mg PO BEDTIME PRN PRN Reason: Spasms Escitalopram Oxalate (Escitalopram Oxalate 20 Mg Tablet) 20 mg PO DAILY JUDD Last Admin: 07/25/21 07:58 Dose: 20 mg Documented by: Hydromorphone HCl (Hydromorphone Hcl 0.5 Mg/0.5 Ml Syringe) 0.5 mg IVPUSH Q2H PRN; Protocol PRN Reason: abdominal pain Last Admin: 07/26/21 02:12 Dose: 0.5 mg Documented by: Lactated Ringer's (Lr) 1,000 mls @ 100 mls/hr IVCONT .Q10H [facility] Last Admin: 07/25/21 22:00 Dose: 100 mls/hr Documented by: Midodrine (Midodrine Hcl 2.5 Mg Tablet) 2.5 mg PO BID [facility] Last Admin: 07/25/21 20:47 Dose: 2.5 mg Documented by: Non-Formulary Medication (Eluxadoline [Viberzi]) 1 tab PO BEDTIME [facility] Non-Formulary Medication (Rimegepant [Nurtec Odt]) 1 tab PO DAILY PRN PRN Reason: Headache Omeprazole (Omeprazole 20 Mg Capsule.Dr) 20 mg PO BID [facility] Last Admin: 07/25/21 20:47 Dose: 20 mg Documented by: Ondansetron HCl (Ondansetron Hcl 4 Mg/2 Ml Vial) 4 mg IVPUSH QID PRN PRN Reason: Nausea Last Admin: 07/25/21 08:00 Dose: 4 mg Documented by: Oxybutynin Chloride (Oxybutynin Chloride Er 5 Mg Tab.Er.24) 10 mg PO DAILY [facility] Last Admin: 07/25/21 07:57 Dose: 10 mg Documented by: Pharmacy Consult (Consult Rx Perform Med Rec) 1 each MISCELLANE ONCE PRN PRN Reason: Consult order Sumatriptan Succinate (Sumatriptan Succinate 100 Mg Tablet) 100 mg PO DAILY PRN PRN Reason: Headache Last Admin: 07/26/21 05:46 Dose: 100 mg Documented by: Time Spent With Patient Time: Total time spent is greater than 50% in coordination of care (as documented) at patient's floor/unit and/or counseling patient: Time with patient: 15 - 24 minutes Quality Stroke Does the patient have a stroke diagnosis?: No VTE Prior VTE?: No VTE Risk Level:: Surgical - moderate VTE Device Contraindication: N/A - Device Ordered VTE Drug Contraindication: Treatment Not Indicated
[2021-07-26 08:00] VITALS: BP 138/65; PULSE 77; RESP 18; TEMP 36.7; O2SAT 94
[2021-07-26] MEDS: Escitalopram Oxalate 20 MG TABLET PO (08:25)
[2021-07-26] MEDS: Omeprazole 20 MG CAPSULE.DR PO (08:25)
[2021-07-26] MEDS: Midodrine HCl 2.5 MG TABLET PO (08:25)
--- NOTE | 2021-07-26 08:26 | HO.POSTANES ---
Post Anesthesia Evaluation Post Anesthesia Evaluation Vital Signs: Vital Signs Temp Pulse Resp BP Pulse Ox 07/26/21 08:00 98.1 F 77 18 138/65 94 07/26/21 03:56 98.6 F 72 16 124/63 93 07/25/21 23:17 98.1 F 79 14 121/63 93 07/25/21 20:47 83 109/56 L Anesthesia: General Endotracheal-GETA Mental Status: Awake Pain Control: Satisfactory Nausea/Vomiting: None Hydration: Adequate Anesthesia-Related Issues: No Anes. Related Issues
[2021-07-26] MEDS: Lactated Ringers 1,000 ML 100 ML IVCONT (08:29)
--- NOTE | 2021-07-26 08:42 | MHC.CM.PN ---
PATIENT IS DISCHARGED HOME - SELF CARE. PATIENT'S MOTHER WILL PROVIDE TRANSPORT. RN AWARE
--- NOTE | 2021-07-26 10:16 | P.DS_ITS ---
DS: Providers Provider Date of Service: 07/26/21 Date of admission: 07/24/21 15:12 Primary care physician: Nonstaff Physician Attending physician on admission: Cristofer Negron DS: Diagnosis Discharge Diagnosis (1) Acute cholecystitis: Status: Acute DS: Summary Hospital Course Hospital Course: BRIEF HPI: Esperanza Zazueta is a 50 year old female presenting with abdominal pain in the right upper quad began at 05:00 this morning.? She denies a previous episode of similar pain and reports the pain being sharp and stabbing, 10/10 of severity.? She denies nausea, vomiting, fever, chills.? She does have a history of irritable bowel syndrome and reflux due to a hiatal hernia.? She denies a previous history of abdominal surgery.? She presented to the emergency department this morning and was found to be tender in the right upper quadrant with a positive Madsen sign.? Ultrasound of the abdomen revealed multiple gallstones within the gallbladder with a tender gallbladder (sonographic Madsen sign).? Admitting laboratories revealed elevated WBC of 11,000 but normal liver function tests.? HOSPITAL COURSE: She was admitted to the surgical service for further management of her acute cholecystitis. It was recommended to proceed with a laparoscopic or possible open cholecystectomy. She consented to the surgery.? She was added onto the operative schedule for the following day. On 07/26/21, a laparoscopic cholecystectomy was performed by Dr. Negron without complication. The gallbladder found to be markedly distended and obstructed and drainage of the bile revealed hydropic fluid suggestive of an obstructed gallbladder. The patient tolerated the procedure well, completed routine recovery in PACU and was admitted to the medical/surgical floor for observation. She had an uncomplicated recovery course. On POD #1, she felt well and was comfortable on PO analgesics. She was tolerating a solid diet without N/V. She was ambulating without difficulty. Her abdomen was benign with appropriate post op tenderness and dressings were c/d/i. She felt ready for discharge to home. She was discharged to home on 07/26/21 in stable condition. Status at Discharge Functional status at discharge: independent ambulation Time Spent with Patient Time attestation: Total time spent providing and/or coordinating discharge serv ices: Discharge coordination time: Less than 30 minutes Quality: Stroke Does the patient have a stroke diagnosis?: No Physical Exam Vital Signs: Vital Signs: Last Vital Signs Temp 98.1 F 07/26/21 08:00 Pulse 77 07/26/21 08:00 Resp 18 07/26/21 08:00 BP 138/65 07/26/21 08:00 Pulse Ox 94 07/26/21 08:00 Body Mass Index 32.5 Const: General: comfortable, no acute distress and alert Orientation/con sciousness: patient oriented x3 Eyes: Sclerae: sclerae normal Resp: Effort & Inspection: normal respiratory effort GI: Inspection: No distended and Yes incision (dressings c/d/i) Palpation (GI): Soft to palpation, Tenderness to palpation present (GI) (mild incisional), no guarding and not rigid Percussion: Yes normal to percussion Skin: General skin exam: no rashes or lesions noted Neuro: General: patient oriented x3 DS: Data Data Completed and Pending Pending studies at discharge: Pending at discharge 07/25/21 12:36 Surgical [PTH] Routine Discharge Plan Discharge Patient Disposition: Home, Self-Care Discharge Diagnosis: Acute cholecystitis, cholelithiasis Referrals: DANIEL MEADOWS MD [Other] - 1 Week Cristofer Negron MD [Physician] - 1 Week Discharge Medications: Continued atorvastatin 10 mg tablet 10 mg PO BEDTIME RF: 0 oxybutynin chloride 10 mg tablet extended release 24hr 1 tab PO DAILY RF: 0 midodrine 2.5 mg tablet 1 tab PO BID RF: 0 escitalopram oxalate 20 mg tablet 1 tab PO DAILY RF: 0 cyclobenzaprine 5 mg tablet 1 tab PO BEDTIME PRN (Reason: Spasms) RF: 0 Viberzi 75 mg tablet 1 tab PO BEDTIME RF: 0 Ajovy Autoinjector 225 mg/1.5 mL auto-injector 140 mg subcut Q28D RF: 0 cetirizine [Zyrtec] 10 mg Tablet 10 mg PO DAILY RF: 0 sumatriptan succinate 100 mg Tablet 100 mg PO DAILY PRN (Reason: Headache) RF: 0 omeprazole 20 mg Capsule,Delayed Release(Dr/Ec) 20 mg PO DAILY RF: 0 black cohosh 200 mg Capsule 200 mg PO DAILY RF: 0 Nurtec ODT 75 mg tablet,disintegrating 1 tab PO DAILY PRN (Reason: Headache) RF: 0 Discharge Orders: Discharge Order (Routine); Ordered 07/26/21 Ordered By: Cristofer Negron Diet: low fat, low cholesterol Activity on Discharge: No heavy lifting Stand Alone Forms: Patient Portal Discharge page Activity Restrictions/Additional Instructions: No lifting > 10 pounds for 2 weeks No driving for one week Remain on a low fat diet for one month Remove dressing in 3 days Follow up in office in one week. Care Plan Goals: Return to normal diet and activity Health Concerns: Abdominal pain right upper quadrant Plan of Treatment: Laparoscopic cholecystectomy (07/25/2021) Assessment: Acute cholecystitis due to cholelithiasis Patient Instructions: Laparoscopic Cholecystectomy (DC)
[2021-07-26 10:44] VITALS: O2SAT 98
== END 2021-07-26 12:00 | disposition home or self-care (01) | DRG 419 ==
LOC: HO.ED 13:25 → HO.EDOVER 17:49 → HO.S3 19:50
PROVIDERS: Physician Assistant; Admitting Provider Surgery; Emergency Provider Emergency Medicine; PCP Family Medicine; Visit Provider Surgery
PROC: 0FT44ZZ Resection of Gallbladder, Percutaneous Endoscopic Approach (ICD-10-PCS; CPT 47562; principal; 2021-07-25 11:30)
DX: K80.00 Calculus of gallbladder with acute cholecystitis without obstruction (principal); Z20.822 Contact with and (suspected) exposure to COVID-19; Z88.0 Allergy status to penicillin; Z88.2 Allergy status to sulfonamides; Z88.5 Allergy status to narcotic agent; Z79.899 Other long term (current) drug therapy
CPT/HCPCS: 36415; 76705; 80048; 80076; 81001; 81003; 81025; 83690; 83735; 85025; 87635; 88304; 93005; 96361; 96365; 96375; 99024; 99285; J0131; J1100; J1170; J1885; J2250; J2405; J2543; J3010

== ENCOUNTER 2022-06-10 10:22 | Outpatient (REF) | payer MEDICARE, OTHER, SELFPAY ==
--- NOTE | ~2022-06-10 | XR_ITS ---
EXAMINATION: XR CHEST CLINICAL INFORMATION: Acute upper respiratory infection. COMPARISON: None TECHNIQUE: 2 views of the chest were obtained. FINDINGS: No significant abnormality is noted involving the heart, lungs, mediastinum, bony thorax or soft tissues. XR/XR chest 2V IMPRESSION: No acute cardiopulmonary process.
[2022-06-10 10:58] LABS: Binax Internal Control QC Valid; Binax Now Covid-19 Ag Negative (Negative); Binax Performed by: HO.BONILM
== END 2022-06-10 10:23 | disposition home or self-care (01) ==
LOC: HO.HMGCX 10:22
PROVIDERS: PCP Family Medicine; Visit Provider Physician Assistant
DX: Z20.822 Contact with and (suspected) exposure to COVID-19 (principal); J06.9 Acute upper respiratory infection, unspecified
CPT/HCPCS: 71046; 87811; C9803

== ENCOUNTER 2022-10-21 16:36 | Outpatient (REF) | payer MEDICARE, OTHER, SELFPAY ==
[2022-10-21 17:27] LABS: Influenza A PCR POSITIVE (Negative); Influenza B PCR NEGATIVE (Negative); Resp Syncy Virus RNA Qual PCR NEGATIVE (Negative); SARS COV2 PCR INHOUSE NEGATIVE (Negative)
== END 2022-10-21 16:37 | disposition home or self-care (01) ==
LOC: HO.LNP 16:36
PROVIDERS: Visit Provider Internal Medicine
DX: R43.9 Unspecified disturbances of smell and taste (principal); Z20.822 Contact with and (suspected) exposure to COVID-19
CPT/HCPCS: 0241U